=== PATIENT | female | born 1945 | race Caucasian/White ===

== ENCOUNTER 2019-08-23 10:59 | Emergency (ER) | payer MEDICARE ==
[2019-08-23 11:44] LABS: #Eosinphils 0.1 thou/uL (0.0-0.7); #Lymphocytes 0.3 thou/uL (1.20-3.40); #Monocytes 0.4 thou/uL (0.11-0.59); #Neutrophils 8.6 thou/uL (1.40-6.50); %Basophils 0.1 % (0.0-1.0); %Eosinophils 1.4 % (0.0-10.0); %Lymphocytes 3.5 % (21.0-51.0); %Monocytes 4.4 % (0.0-10.0); %Neutrophils 90.6 % (42.0-75.0); Hemoglobin 14.7 g/dL (12.0-16.0); Mean Corpuscular Hemoglobin 30.7 pg (27.0-31.0); Mean Corpuscular Volume 90.2 fL (78.0-98.0); Mean Platelet Volume 6.2 fL (7.4-10.4); Platelet Count 302 thou/uL (130-400); RBC Distribution Width 11.8 % (11.5-14.5); Red Blood Cell (RBC) Count 4.78 mill/uL (4.20-5.40); White Blood Cell (WBC) Count 9.4 thou/uL (4.8-10.8)
[2019-08-23 12:24] LABS: ALT (SGPT) 21 U/L (8-55); AST (SGOT) 22 U/L (5-34); Albumin 4.6 g/dL (3.4-4.8); Alkaline Phosphatase 77 U/L (40-110); Anion Gap 15 mmol/L (10-20); BUN (Urea Nitrogen) 23 mg/dL (9.8-20.1); Bilirubin, Total 0.6 mg/dL (0.2-1.2); Calc. Creatinine Clearance 0 mL/min (70-130); Calcium 9.9 mg/dL (7.8-10.44); Carbon Dioxide 21 mmol/L (23-31); Chloride 104 mmol/L (98-107); Estimated GFR-MDRD 71; Globulin 3.2 g/dL (2.4-3.5); Glucose 129 mg/dL (83-110); Potassium 3.9 mmol/L (3.5-5.1); Protein, Total 7.8 g/dL (6.0-8.3); Sodium 136 mmol/L (136-145)
[2019-08-23] MEDS ORDERED: Ondansetron PF 4 MG/2 ML Vial ONE (14:00)
== END 2019-08-23 14:25 | disposition home or self-care (01) ==
LOC: ERS 10:59
DX: R11.2 Nausea with vomiting, unspecified (principal); E78.5 Hyperlipidemia, unspecified; E03.9 Hypothyroidism, unspecified; F32.9 Major depressive disorder, single episode, unspecified
CPT/HCPCS: 36415; 80053; 83605; 83690; 85025; 93005; 96361; 96374; J2405

== ENCOUNTER 2020-05-25 13:00 | Outpatient (CLI) | payer MEDICARE ==
--- NOTE | 2020-05-25 13:47 | BD ---
DEXA BONE DENSITOMETRY: (Dual energy x-ray absorptiometry) DATE: 05/25/2020 HISTORY: 75-year old white female for age-related, post-menopausal, osteoporosis screening. weight: 137 lbs height: 67 in. age of menopause: 59 COMPARISON: None available. FINDINGS: The bone mineral density (BMD) is given in grams per square centimeter (g/cm2): LUMBAR SPINE: BMD (g/cm^2) T score Z score L1: 0.960 -0.3 1.8 L2: 1.027 0.0 2.3 L3: 0.983 -0.9 1.5 L4: 1.122 0.6 3.1 Total: 1.032 -0.1 2.2 HIP: BMD (g/cm^2) T score Z score Femoral neck: 0.674 -1.6 0.5 Total: 0.829 -0.9 0.8 FRAX WHO fracture risk assessment tool: 10 year fracture risk* Major osteoporotic fracture: 10 % Hip fracture: 2.0 % Reported risk factors: [place] (), neck BMD = 0.674 (g/cm^2), BMI = 21.5. *Fracture probability is calculated for an untreated patient. Fracture probability may be lower if th e patient has received treatment. IMPRESSION: 1.) The mean bone mineral density of the lumbar spine is normal. Fracture risk is not increased. 2) The bone mineral density of the femoral neck is osteopenic. Fracture risk is increased.
--- NOTE | 2020-06-08 10:52 | MMO ---
Bilateral MAMMO Bilat Screen [facility]. CLINICAL HISTORY: Patient is 75 years old and is seen for screening. The patient has the following family history of breast cancer: mother, malignant (generic). The patient has no personal history of cancer. VIEWS: The views performed were: bilateral craniocaudal with tomosynthesis and bilateral mediolateral oblique with tomosynthesis. FILMS COMPARED: The present examination has been compared to prior imaging studies performed at [facility] on 12/14/2017 and 12/27/2018, and at [facility] on 10/15/2015 and 10/19/2016. This study has been interpreted with the assistance of computer-aided detection. MAMMOGRAM FINDINGS: There are scattered fibroglandular densities. There are stable benign appearing calcifications seen in both breasts. There are no suspicious masses, suspicious calcifications, or new areas of architectural distortion. IMPRESSION: THERE IS NO MAMMOGRAPHIC EVIDENCE OF MALIGNANCY. A ROUTINE FOLLOW-UP MAMMOGRAM IN 1 YEAR IS RECOMMENDED. THE RESULTS OF THIS EXAM WERE SENT TO THE PATIENT. ACR BI-RADS Category 2 - Benign finding MAMMOGRAPHY NOTE: 1. A negative mammogram report should not delay a biopsy if a dominant of clinically suspicious mass is present. 2. Approximately 10% to 15% of breast cancers are not detected by mammography. 3. Adenosis and dense breasts may obscure an underlying neoplasm. Reported by: KYLER RODARTE MD Electonically Signed: [id number]
== END 2020-05-25 13:01 | disposition home or self-care (01) ==
LOC: BICMAMMO 13:00
PROVIDERS: ATTEND Internal Medicine
DX: Z12.31 Encounter for screening mammogram for malignant neoplasm of breast (principal); Z13.820 Encounter for screening for osteoporosis; N95.9 Unspecified menopausal and perimenopausal disorder; M85.859 Other specified disorders of bone density and structure, unspecified thigh; Z80.3 Family history of malignant neoplasm of breast
CPT/HCPCS: 77063; 77067; 77080

== ENCOUNTER 2024-01-03 12:50 | Outpatient (CLI) | payer OTHER | END 2024-01-03 12:51 | disposition home or self-care (01) | LOC: BICMAMMO 12:50 | PROVIDERS: ATTEND Internal Medicine | DX: Z12.31 Encounter for screening mammogram for malignant neoplasm of breast (principal); Z80.3 Family history of malignant neoplasm of breast | CPT/HCPCS: 77063; 77067 ==

== ENCOUNTER 2025-10-26 13:44 | Outpatient (CLI) | payer MEDICARE | END 2025-10-26 13:45 | disposition home or self-care (01) | LOC: ULT 13:44 | PROVIDERS: ATTEND Internal Medicine | DX: E04.2 Nontoxic multinodular goiter (principal); E03.9 Hypothyroidism, unspecified | CPT/HCPCS: 76536 ==